=== PATIENT | female | born 1955 | race Caucasian/White ===

== ENCOUNTER 2019-03-12 10:16 | Emergency (ER) | payer OTHER ==
[~2019-03-12] VITALS: Ht 152.4 cm; Wt 68.0 kg
[2019-03-12 10:20] VITALS: BP_SYST 156
--- NOTE | 2019-03-12 10:24 | NUR ---
Patient to ER bed 4 to gown for evaluation. Side rails up. Report given to MEREDITH ZAMORA.
--- NOTE | 2019-03-12 10:25 | NUR ---
Patient is awake, alert, and oriented x4. Patient went to the bathroom in a restaurant today, felt dizzy and was helped into a chair. Patient presents with right upper quadrant abdominal. She denies nausea and vomiting. She states she feels constipated.
[2019-03-12] MEDS ORDERED: NACL 0.9% 1,000 ML IV ONE (10:26)
[2019-03-12] MEDS ORDERED: DIPHENHYDRAMINE INJ 50 MG/ML VIAL IVP ONE (10:30)
[2019-03-12] MEDS ORDERED: ONDANSETRON HCL 4 MG/2 ML VIAL IVP ONE (10:30)
[2019-03-12] MEDS: MORPHINE 4 MG/ML INJ. SYRINGE IVP ONE ×2 (10:45→10:47)
--- NOTE | 2019-03-12 10:47 | NUR ---
Patient refused morphine, Dr. Long made aware.
[2019-03-12 11:08] LABS: BASOPHILS % (AUTO) 0.3 % (0.0-2.0); EOSINOPHILS % (AUTO) 0.1 % (0.0-4.0); HEMATOCRIT 40.4 % (36-48); HEMOGLOBIN 14.1 g/dL (12.0-16.0); LYMPHOCYTES # (AUTO) 2.4 K/uL (1.0-5.5); LYMPHOCYTES % (AUTO) 22.5 % (20.5-51.5); MEAN CORPUSCULAR HEMOGLOBIN 34 pg (27-31); MEAN CORPUSCULAR HGB CONC 35 % (32-36); MEAN CORPUSCULAR VOLUME 99 fL (79.0-98.0); MONOCYTES # (AUTO) 0.5 K/uL (0.0-1.0); MONOCYTES % (AUTO) 4.7 % (1.7-9.3); NEUTROPHILS # (AUTO) 7.9 K/uL (1.8-7.7); NEUTROPHILS % (AUTO) 72.4 % (40.0-70.0); PLATELET COUNT (AUTO) 210 K/uL (130-430); RED BLOOD CELL COUNT(AUTO) 4.09 MIL/uL (4.2-6.2); RED CELL DISTRIBUTION WIDTH 13.2 % (9.0-15.0); WHITE BLOOD COUNT (AUTO) 10.9 K/uL (4.8-10.8)
[2019-03-12 11:14] LABS: CALCIUM 7.3 mg/dL (8.4-11.0); CREATININE 0.67 mg/dL (0.55-1.30)
--- NOTE | 2019-03-12 11:17 | NUR ---
Patient transported to radiology via gurney, accompanied by management technician.
[2019-03-12 11:19] LABS: ALBUMIN 3.4 g/dL (3.4-4.8); TOTAL BILIRUBIN 0.8 mg/dL (0.0-1.0)
[2019-03-12 11:22] LABS: POTASSIUM 2.9 mmol/L (3.5-5.1)
[2019-03-12] MEDS ORDERED: POTASSIUM CHLORIDE 20 MEQ/PKT PACKET PO ONE (11:30)
--- NOTE | 2019-03-12 11:37 | NUR ---
Returned from radiology, back to [facility].
--- NOTE | 2019-03-12 13:06 | NUR ---
Pt given urine cup for sample
[2019-03-12 13:39] VITALS: BP_SYST 144
== END 2019-03-12 13:39 | disposition home or self-care (01) ==
LOC: SED 10:16
DX: E87.6 Hypokalemia (principal); R42 Dizziness and giddiness
CPT/HCPCS: 36415; 74018; 76700; 80053; 81002; 83690; 85025; 93005; 96361; 96374; 96375; 99284; J1200; J2270; J2405; J7030